=== PATIENT | female | born 1995 | race Caucasian/White ===

== ENCOUNTER → 2017-11-30 | Outpatient (CLI) | payer OTHER ==
[~2017-11-30] MED LIST: HYDR25CA PO
== END | disposition home or self-care (01) ==
LOC: C.LABSPEC 14:02
PROVIDERS: ATTEND Family Medicine
DX: R06.02 Shortness of breath (principal); R07.9 Chest pain, unspecified

== ENCOUNTER 2018-02-16 11:12 | Emergency (ER) | payer OTHER ==
[~2018-02-16] VITALS: Ht 177.8 cm; Wt 70.6 kg
[2018-02-16 11:37] VITALS: TEMP 37.3; Ht 177.8 cm; Wt 70.6 kg
[2018-02-16] MEDS ORDERED: SODIUM CHLORIDE 0.9% 1000ML 1,000 ML IV ONE ×2 (12:30)
[2018-02-16 12:47] LABS: BASO % 0.5 %; BASO ABS # 0.03 K/uL (0-0.2); EOS % 0.9 %; EOS ABS # 0.05 K/uL (0-0.5); HEMATOCRIT 38.1 % (37-47); HEMOGLOBIN 13.3 g/dL (12.0-16.0); IG# 0.02 K/uL (0.00-0.02); LYMPH ABS # 1.44 K/uL (1.2-3.4); MEAN CELL VOLUME 83.7 fL (80-100); MEAN CORPUSCULAR HEMOGLOBIN 29.2 pg (25-34); MEAN CORPUSCULAR HGB CONC 34.9 g/dl (32-36); MEAN PLATELET VOLUME 9.8 fL (7.4-10.4); MONO ABS # 0.33 K/uL (0.11-0.59); NEUT % 66.2 %; NEUT ABS # 3.67 K/uL (1.4-6.5); PLATELET COUNT 279 K/uL (130-400); RED CELL DISTRIBUTION WIDTH CV 12.6 % (11.5-14.5); WHITE BLOOD COUNT 5.54 K/uL (4.8-10.8)
--- NOTE | 2018-02-16 12:59 | EMERGENCY ROOM VISIT NOTE ---
History First contact with patient: 11:52 Chief Complaint: ILLNESS Stated Complaint: FATIGUE,DIZZINESS,HEADACHE,DEHYDATION History of Present Illness The patient is a 22 year old female who presents to the Emergency Room with complaints feeling shaky and dehydrated for the last week. The patient admits to not drinking adequately over the last week. She has a history of anxiety and depression. She had medication changes put into place 5 days ago. Her Lamictal and Luvox were increased. She has had problems with serotonin in the past. Her last bowel movement was reportedly normal this morning. She denies any nausea or vomiting. No chest pain or difficulty breathing. Patient also reports an eating disorder. Review of Systems 10 system review performed and negative unless noted in HPI or below Past Medical/Surgical History Medical Problems: (1) ACL (anterior cruciate ligament) tear (2) Eating disorder (3) Migraines Social History Smoking Status: Never Smoker Occupation Status: [employer] student Current/Historical Medications Scheduled Control Pills ( Control Pills), 1 TAB PO DAILY Buspirone Hcl (Buspar), 15 MG PO TID Cholecalciferol (Vitamin D), 1 DOSE PO DAILY Fluvoxamine Maleate (Luvox), 50 MG PO AMPM Lamotrigine (Lamictal), 200 MG PO PM Naltrexone Hcl (Naltrexone Hcl), 75 MG PO HS Pantoprazole (Protonix), 40 MG PO AMPM Ranitidine (Zantac), 300 MG PO HS Scheduled PRN Albuterol Hfa (Ventolin Hfa), 2-4 PUFFS INH Q4 PRN for SOB/Wheezing Hydroxyzine HCl (Hydroxyzine HCl), 10-30 MG PO PM PRN for Anxiety Physical Exam Vital Signs Date Time Temp Pulse Resp B/P (MAP) Pulse Ox O2 Delivery O2 Flow Rate FiO2 02/16/18 17:09 110/66 02/16/18 14:19 77 18 118/77 97 Room Air 02/16/18 13:09 60 16 118/77 97 Room Air 02/16/18 11:37 37.3 77 18 137/83 96 Room Air Physical Exam VITALS: Vitals are noted on the nurse's note and reviewed by myself. Vital signs stable. GENERAL: 22-year-old female, mildly anxious in appearance,, in no acute distress , nondiaphoretic, well-developed well-nourished. SKIN: The skin was without rashes, erythema, edema, or bruising. HEAD: Normocephalic atraumatic. EYES: Pupils equal round and reactive to light and accommodation. Conjunctivae without injection, sclerae without icterus. Extraocular movements intact. MOUTH: Mucous membranes dry NECK: Supple without nuchal rigidity. No lymphadenopathy. Cervical spine is nontender. No JVD. HEART: Regular rate and rhythm without murmurs gallops or rubs. LUNGS: Clear to auscultation bilaterally without wheezes, rales or rhonchi. No accessory muscle use. ABDOMEN: Positive bowel sounds x 4.Soft, nontender, without organomegaly. No guarding or rebound tenderness. MUSCULOSKELETAL: No muscle atrophy, erythema, or edema noted. Full range of motion in all extremities. No tenderness to palpation. Normal gait. Strength 5/5 throughout. NEURO: Patient was alert and oriented to person place and time. Mild fine tremor noted. Normal sensation to touch. No focal neurological deficits. Medical Decision & Procedures Laboratory Results 02/16/18 12:00 Red Blood Count 4.55, Mean Corpuscular Volume 83.7, Mean Corpuscular Hemoglobin 29.2, Mean Corpuscular Hemoglobin Concent 34.9, Mean Platelet Volume 9.8, Neutrophils (%) (Auto) 66.2, Lymphocytes (%) (Auto) 26.0, Monocytes (%) (Auto) 6.0, Eosinophils (%) (Auto) 0.9, Basophils (%) (Auto) 0.5, Neutrophils # (Auto) 3.67, Lymphocytes # (Auto) 1.44, Monocytes # (Auto) 0.33, Eosinophils # (Auto) 0.05, Basophils # (Auto) 0.03 02/16/18 12:00 Test 02/16/18 12:00 02/16/18 14:22 White Blood Count 5.54 K/uL (4.8-10.8) Red Blood Count 4.55 M/uL (4.2-5.4) Hemoglobin 13.3 g/dL (12.0-16.0) Hematocrit 38.1 % (37-47) Mean Corpuscular Volume 83.7 fL (80-100) Mean Corpuscular Hemoglobin 29.2 pg (25-34) Mean Corpuscular Hemoglobin Concent 34.9 g/dl (32-36) Platelet Count 279 K/uL (130-400) Mean Platelet Volume 9.8 fL (7.4-10.4) Neutrophils (%) (Auto) 66.2 % Lymphocytes (%) (Auto) 26.0 % Monocytes (%) (Auto) 6.0 % Eosinophils (%) (Auto) 0.9 % Basophils (%) (Auto) 0.5 % Neutrophils # (Auto) 3.67 K/uL (1.4-6.5) Lymphocytes # (Auto) 1.44 K/uL (1.2-3.4) Monocytes # (Auto) 0.33 K/uL (0.11-0.59) Eosinophils # (Auto) 0.05 K/uL (0-0.5) Basophils # (Auto) 0.03 K/uL (0-0.2) RDW Standard Deviation 38.0 fL (36.4-46.3) RDW Coefficient of Variation 12.6 % (11.5-14.5) Immature Granulocyte % (Auto) 0.4 % Immature Granulocyte # (Auto) 0.02 K/uL (0.00-0.02) Anion Gap 6.0 mmol/L (3-11) Est Creatinine Clear Calc Drug Dose 122.8 ml/min Estimated GFR () 124.9 Estimated GFR (Non- 107.8 BUN/Creatinine Ratio 14.5 (10-20) Calcium Level 8.9 mg/dl (8.5-10.1) Total Bilirubin 0.3 mg/dl (0.2-1) Aspartate Amino Transf (AST/SGOT) 14 U/L (15-37) Alanine Aminotransferase (ALT/SGPT) 23 U/L (12-78) Alkaline Phosphatase 55 U/L (45-117) Total Protein 7.0 gm/dl (6.4-8.2) Albumin 3.7 gm/dl (3.4-5.0) Globulin 3.3 gm/dl (2.5-4.0) Albumin/Globulin Ratio 1.1 (0.9-2) Thyroid Stimulating Hormone (TSH) 0.736 uIu/ml (0.300-4.500) Human Chorionic Gonadotropin, Qual NEG (NEG) Urine Color YELLOW Urine Appearance TURBID (CLEAR) Urine pH 8.0 (4.5-7.5) Urine Specific [place] 1.015 (1.000-1.030) Urine Protein NEG (NEG) Urine Glucose (UA) NEG (NEG) Urine Ketones NEG (NEG) Urine Occult Blood NEG (NEG) Urine Nitrite NEG (NEG) Urine Bilirubin NEG (NEG) Urine Urobilinogen NEG (NEG) Urine Leukocyte Esterase NEG (NEG) Urine WBC (Auto) 0 /hpf (0-5) Urine RBC (Auto) 0-4 /hpf (0-4) Urine Hyaline Casts (Auto) 0 /lpf (0-5) Urine Epithelial Cells (Auto) 10-20 /lpf (0-5) Urine Bacteria (Auto) NEG (NEG) Urine Opiates Screen NEG (NEG) Urine Methadone, Qualitative NEG (NEG) Urine Barbiturates NEG (NEG) Urine Phencyclidine (PCP) Level NEG (NEG) Ur Amphetamine/Methamphetamine NEG (NEG) MDMA (Ecstasy) Screen NEG (NEG) Urine Benzodiazepines Screen NEG (NEG) Urine Cocaine Metabolite NEG (NEG) Urine Marijuana (THC) NEG (NEG) Medications Administered Medications (Trade) Dose Ordered Sig/[place] Route Start Time Stop Time Status Last Admin Dose Admin Sodium Chloride 1,000 ml @ 999 mls/hr Q1H1M ONCE IV 02/16/18 12:30 02/16/18 13:30 DC 02/16/18 12:30 999 MLS/HR Sodium Chloride 1,000 ml @ 999 mls/hr Q1H1M ONCE IV 02/16/18 12:30 02/16/18 13:30 DC 02/16/18 12:30 999 MLS/HR Acetaminophen (Tylenol Tab) 1,000 mg NOW STAT PO 02/16/18 13:10 02/16/18 13:11 DC 02/16/18 13:26 1,000 MG ED Course Patient was seen and examined Vital signs including blood pressure were reviewed medications list was verified with patient Labs were obtained, and a saline lock was established The patient was hydrated with 2 L of normal saline The case was discussed with the pharmacist to personally reviewed her med list. Upon reevaluation, the patient was feeling slightly better. We reviewed her blood tests. She voiced understanding. She was comfortable being discharged home. I reviewed discharge instructions the patient. They voiced understanding and had no further questions. Medical Decision Differential diagnosis: Anxiety, depression, adverse medication reaction, serotonin syndrome, withdrawal, drug abuse This patient is a 22-year-old female that presents to the emergency department with complaints of a tremor and possible dehydration. She has not been adequately drinking at home. On exam, she had a mild fine tremor in her hands. Otherwise, she was neurologically intact. The patient is on multiple medications that can cause serotonin syndrome, which she has had in the past. That is 1 of her concerns today. The patient does not have any convincing signs of this. She is afebrile. There is no tachycardia. No confusion or agitation. No diffuse sweating. The patient's medications were just recently adjusted. I recommended that she decrease her medications, particularly the Luvox and Lamictal, back to their original doses. She voiced understanding, and was comfortable with this plan. She was adequately hydrated in the emergency department with good symptomatic relief. I believe she is stable to be discharged home with close follow-up. She will follow-up with [facility] or her primary care physician closely, and agrees to return with any worsening symptoms. She was cautioned on symptoms for which to return to the emergency department. This chart was completed in part utilizing [employer] Speech Voice Recognition software. Attempts were made to minimize the grammatical errors, random word insertions, pronoun errors and incomplete sentences. Any formal questions or concerns about the content, text or information contained within the body of this dictation should be directly addressed to the provider for clarification. Medication Reconcilliation Current Medication List: was personally reviewed by me Blood Pressure Screening Patient's blood pressure: Elevated blood pressure Blood pressure disposition: Elevated BP felt to be situational Impression Primary Impression: Dehydration Additional Impression: Tremor of both hands Departure Information Dispostion Home / Self-Care Condition GOOD Referrals Yoon Almanza M.D. (PCP) Patient Instructions My [facility] Additional Instructions You were evaluated the emergency department for shaking and dehydration. Please watch for signs of serotonin syndrome such as a severe tremor, fever, confusion, diffuse sweating, rapid heart rate and agitation Please decrease your dose of Lamictal and Luvox back to the original dose as of Tuesday evening Please follow-up with your primary care physician or [facility] as soon possible. Call tomorrow morning for a follow-up appointment. Please stay well-hydrated. Increase fluids over the next several days. Do not hesitate to return to the emergency department with any new, worsening or concerning symptoms It was a pleasure participating in your care today School Instructions Return To School: 2 days Problem Qualifiers
[2018-02-16] MEDS ORDERED: NALT50TA5 PO (13:02)
[2018-02-16] MEDS ORDERED: LAMO200T35 PO (13:02)
[2018-02-16] MEDS ORDERED: PANT40TA PO (13:02)
[2018-02-16] MEDS ORDERED: VNTHFA/IN INH (13:02)
[2018-02-16] MEDS ORDERED: ATR10 PO (13:02)
[2018-02-16] MEDS ORDERED: CHOL400T PO (13:02)
[2018-02-16] MEDS ORDERED: FLUV50TA2 PO (13:02)
[2018-02-16] MEDS ORDERED: RANI300T2 PO (13:02)
[2018-02-16] MEDS ORDERED: BCPILLS PO (13:02)
[2018-02-16] MEDS ORDERED: BUSP15TA70 PO (13:02)
[2018-02-16 13:05] LABS: ALBUMIN 3.7 gm/dl (3.4-5.0); CALCIUM 8.9 mg/dl (8.5-10.1); CREATININE 0.79 mg/dl (0.60-1.20); POTASSIUM 3.6 mmol/L (3.5-5.1)
[2018-02-16] MEDS ORDERED: ACETAMINOPHEN 500 MG TAB PO STA (13:10)
[2018-02-16 14:19] VITALS: PULSE 77; O2SAT 97
--- NOTE | 2018-02-16 16:42 | Pharmacy Progress Note ---
ED Pharmacist Progress Note Date of Service: Feb 16, 2018. Situation Requested by Audrey Maier PA-C to determine if patient's tremor could be medication induced. Background Pertinent medications include lamotrigine (increased recently), fluvoxamine ( increased recently), and buspirone Assessment * Lamotrigine may cause tremor. Estimated incidence is ~5%. * Fluvoxamine and Buspar are both serotonergic medications. Tremor may be a symptom of serotonin syndrome. Patient also has a dry mouth but this could be due to dehydration instead of serotonin syndrome * Patient is not exhibiting other symptoms of serotonin syndrome including the following, per Audrey * Fever > 38 C * Hyperreflexia * Agitation (patient has history of anxiety and is mildly anxious, but not acutely agitated) * Dilated pupils * Flushed skin * Diaphoresis Recommendation * Reduce doses of lamotrigine and fluvoxamine back to previous and follow-up as outpatient * Advise patient on strict immediate return instructions including the following : * Acute agitation * Dilated pupils * Fever * Muscle rigidity * Worsening tremor * Flushed skin * Sweating to an unusual degree
[2018-02-16 17:09] VITALS: BP 110/66
== END 2018-02-16 17:10 | disposition home or self-care (01) ==
LOC: C.EDB 11:14 → C.EDC 17:10
DX: E86.0 Dehydration (principal); R25.1 Tremor, unspecified; F41.9 Anxiety disorder, unspecified; F32.9 Major depressive disorder, single episode, unspecified; F50.9 Eating disorder, unspecified